=== PATIENT | male | born 1950 | race Hispanic/Latino ===

== ENCOUNTER → 2017-07-27 | Outpatient (CLI) | payer OTHER | LOC: OIH 08:36 | PROVIDERS: ATTEND Family Medicine | DX: M16.11 Unilateral primary osteoarthritis, right hip (principal) | CPT/HCPCS: 73502 ==

== ENCOUNTER → 2017-10-01 | Outpatient (CLI) | payer OTHER | END | disposition home or self-care (01) | LOC: OIH 16:17 | PROVIDERS: ATTEND Family Medicine | DX: Z01.818 Encounter for other preprocedural examination (principal); M47.895 Other spondylosis, thoracolumbar region | CPT/HCPCS: 71046 ==

== ENCOUNTER → 2018-09-30 | Outpatient (CLI) | payer OTHER | END | disposition home or self-care (01) | LOC: OIH 16:20 | PROVIDERS: ATTEND Family Medicine | DX: Z01.818 Encounter for other preprocedural examination (principal) | CPT/HCPCS: 71046 ==

== ENCOUNTER → 2019-07-21 | Outpatient (CLI) | payer OTHER | END | disposition home or self-care (01) | LOC: OIH 14:49 | PROVIDERS: ATTEND Family Medicine | DX: M17.11 Unilateral primary osteoarthritis, right knee (principal) | CPT/HCPCS: 73560 ==

== ENCOUNTER → 2023-08-28 | Outpatient (CLI) | payer OTHER | END | disposition home or self-care (01) | LOC: RESP 11:42 | PROVIDERS: ATTEND Family Medicine | DX: Z01.818 Encounter for other preprocedural examination (principal); J98.4 Other disorders of lung; M47.815 Spondylosis without myelopathy or radiculopathy, thoracolumbar region | CPT/HCPCS: 71046 ==

== ENCOUNTER 2023-09-15 07:18 | Observation (INO) | payer OTHER ==
[2023-09-09 13:25] VITALS: BP 166/92; PULSE 58; RESP 18
[2023-09-09 13:33] LABS: BASOPHILS # (AUTO) 0.03 K/uL (0.00-0.20); BASOPHILS % (AUTO) 0.6 % (0.0-5.0); EOSINOPHILS # (AUTO) 0.16 K/uL (0.00-0.70); EOSINOPHILS % (AUTO) 3.3 % (0.0-8.0); HEMATOCRIT 37.8 % (42-54); IMMATURE GRANULOCYTE ABSOLUTE 0.01 K/uL (0-1); LYMPHOCYTES # (AUTO) 1.1 K/uL (1.0-4.8); LYMPHOCYTES % (AUTO) 23.7 % (21.0-51.0); MEAN CORPUSCULAR HEMOGLOBIN 31.3 pg (27.0-33.0); MEAN CORPUSCULAR HGB CONC 34.4 g/dL (32.0-36.0); MEAN CORPUSCULAR VOLUME 90.9 fL (79-99); MONOCYTES # (AUTO) 0.5 K/uL (0.1-1.0); MONOCYTES % (AUTO) 9.5 % (3.0-13.0); NEUTROPHILS % (AUTO) 62.7 % (40.0-77.0); PLATELET COUNT (AUTO) 177 K/uL (130-400); RED BLOOD CELL COUNT(AUTO) 4.16 MIL/uL (4.50-6.20); RED CELL DISTRIBUTION WIDTH 13.3 % (11.0-15.5); WHITE BLOOD COUNT (AUTO) 4.8 K/uL (4.8-10.8)
[2023-09-15] VITALS (33 sets, daily range): BP systolic 83–164; BP diastolic 49–94; PULSE 55–92; RESP 12–19; O2SAT 94–96
[~2023-09-15] VITALS: Ht 175.3 cm; Wt 117.9 kg
[~2023-09-15 07:18] MED LIST: ATOR20TA65 PO; LISI20TA24 PO; LORA10TA7 PO; TAMS-1 PO
[2023-09-15] MEDS: LACTATED RINGERS 1000ML 1,000 ML IV ONE (07:26)
[2023-09-15] MEDS: CEFAZOLIN SODIUM 2 GM VIAL ONE ×2 (07:26→13:01)
[2023-09-15] MEDS ORDERED: ROCURONIUM BROMIDE 10MG/1ML 5ML VL ONE ×2 (07:44→08:38)
[2023-09-15] MEDS ORDERED: PROPOFOL 10 MG/ML 20ML VIAL IV ONE (07:44)
[2023-09-15] MEDS ORDERED: ONDANSETRON 4MG INJ ONE (07:44)
[2023-09-15] MEDS ORDERED: FENTANYL CITRATE PF 50 MCG/1 ML 2ML VIAL ONE (07:45)
[2023-09-15] MEDS ORDERED: MIDAZOLAM HCL 1 MG/ML 2ML VIAL ONE (07:45)
[2023-09-15] MEDS ORDERED: DEXAMETHASONE SOD PHOSPHATE 10MG/ML 1ML VIAL ONE (07:50)
[2023-09-15] MEDS ORDERED: ONDANSETRON 4MG INJ IVP PRN (08:30)
[2023-09-15] MEDS ORDERED: POTASSIUM CHLORIDE 10% ELIXIR 20 MEQ/15 ML UDCUP PO PRN (08:30)
[2023-09-15] MEDS ORDERED: KCL 20 MEQ ERTAB PO PRN (08:30)
[2023-09-15] MEDS: 0.9%NACL 1000ML 1,000 ML IV SCH (08:30)
[2023-09-15] MEDS ORDERED: POTASSIUM CHLORIDE 20MEQ/100ML 100 ML IV PRN (08:30)
[2023-09-15] MEDS: CEFAZOLIN SODIUM 3 GM VIAL IVPB ONE (08:30)
[2023-09-15] MEDS ORDERED: EPHEDRINE SULFATE 50 MG/ML AMPULE ONE (08:33)
[2023-09-15] MEDS ORDERED: TRANEXAMIC ACID 1000MG/10ML ONE (08:53)
[2023-09-15] MEDS: FAMOTIDINE 20MG TAB PO SCH (09:00)
[2023-09-15] MEDS: POLYETHYLENE GLYCOL 3350 17 GM POWD.PACK PO SCH (09:00)
[2023-09-15] MEDS: LISINOPRIL 20 MG TABLET PO SCH (09:00)
[2023-09-15] MEDS: TAMSULOSIN HCL 0.4 MG CAP.ER.24H PO SCH (09:00)
[2023-09-15] MEDS ORDERED: GLYCOPYRROLATE 0.2 MG/ML 5 ML VIAL ONE (11:19)
[2023-09-15] MEDS ORDERED: IBUPROFEN 800MG + NS 250ML IV SCH (11:30)
[2023-09-15] MEDS: CALDOLOR 800MG+NS 250ML 250 ML IV SCH (11:30)
[2023-09-15] MEDS: MEPERIDINE-PF 25 MG/ML SYG ONE ×2 (11:44→11:55)
[2023-09-15] MEDS: ACETAMINOPHEN 1,000 MG/100 ML VIAL IV ONE (11:58)
[2023-09-15] MEDS: ACETAMINOPHEN 1,000 MG/100 ML VIAL IV SCH (11:58)
[2023-09-15] MEDS: FENTANYL CITRATE PF 50 MCG/1 ML 2ML VIAL ONE ×2 (12:06→12:14)
[2023-09-15] MEDS: HYDROMORPHONE 1 MG INJ ONE (12:28)
[2023-09-15] MEDS: CEFAZOLIN SODIUM 2 GM VIAL IVPB SCH (13:30)
[2023-09-15] MEDS: MORPHINE 4 MG SYG IVP PRN (16:13)
[2023-09-15] MEDS: ATORVASTATIN 20 MG TABLET PO SCH (21:30)
[2023-09-16] VITALS (7 sets, daily range): BP systolic 114–143; BP diastolic 50–77; PULSE 67–82; RESP 17–20; O2SAT 97–100
[2023-09-16 04:41] LABS: MEAN CORPUSCULAR HEMOGLOBIN 31.1 pg (27.0-33.0); MEAN CORPUSCULAR HGB CONC 33.3 g/dL (32.0-36.0); MEAN CORPUSCULAR VOLUME 93.2 fL (79-99); RED BLOOD CELL COUNT(AUTO) 3.22 MIL/uL (4.50-6.20); RED CELL DISTRIBUTION WIDTH 13.4 % (11.0-15.5); WHITE BLOOD COUNT (AUTO) 10.2 K/uL (4.8-10.8)
[2023-09-16 05:00] LABS: CREATININE 0.9 mg/dL (0.5-1.3); POTASSIUM 4.4 mmol/L (3.5-5.1)
[2023-09-16] MEDS: FERROUS GLUCONATE 324MG TABLET.DR PO SCH (09:21)
[2023-09-16] MEDS: ENOXAPARIN SODIUM 30 MG/0.3 ML SQ SCH (09:29)
[2023-09-16] MEDS: 0.9% NACL 500ML IV.SOLN 500 ML IV ONE (17:40)
[2023-09-16] MEDS: CALDOLOR 800MG+NS 250ML 250 ML IV SCH (19:13)
[2023-09-16] MEDS ORDERED: ACETAMINOPHEN 1,000 MG/100 ML VIAL IV SCH (21:00)
[2023-09-16] MEDS ORDERED: CALDOLOR 800MG+NS 250ML 250 ML IV SCH (21:00)
[2023-09-16] MEDS: NITROFURANTOIN MONOHYD/M-CRYST 100 MG CAPSULE PO SCH (21:36)
[2023-09-16] MEDS: ACETAMINOPHEN 1,000 MG/100 ML VIAL IV SCH (21:36)
[2023-09-17] VITALS (7 sets, daily range): BP systolic 106–153; BP diastolic 44–68; PULSE 52–72; RESP 18–20; O2SAT 95–98
[2023-09-17] MEDS: HYDROCODONE/ACETAMINOPHEN 5/325 MG TAB PO PRN (09:52)
[2023-09-17] MEDS: HYDROCODONE/ACETAMINOPHEN 10/325 MG TAB PO PRN (14:35)
[2023-09-18] VITALS: BP 108/38; PULSE 86; RESP 20
[2023-09-18 04:00] VITALS: BP 130/64; PULSE 90; RESP 18
[2023-09-18 08:00] VITALS: O2SAT 96
[2023-09-18] MEDS ORDERED: BISACODYL 10 MG SUPP.RECT RC PRN (08:30)
[2023-09-18 08:36] VITALS: BP 131/75; PULSE 73; RESP 15
[2023-09-18 11:43] VITALS: BP 122/56; PULSE 77; RESP 18
== END 2023-09-18 14:10 | disposition home or self-care (01) ==
LOC: DAH 07:18 → DAHIP 07:19 → DAH 07:19 → 4BH 15:57
PROVIDERS: ADMIT Orthopaedic Surgery; ATTEND Orthopaedic Surgery
DX: M16.12 Unilateral primary osteoarthritis, left hip (principal); G89.18 Other acute postprocedural pain; E78.5 Hyperlipidemia, unspecified; I10 Essential (primary) hypertension; E66.01 Morbid (severe) obesity due to excess calories; Z96.652 Presence of left artificial knee joint; Z68.38 Body mass index [BMI] 38.0-38.9, adult
CPT/HCPCS: 83540; 85025; 82306; 36415 ×2; 87641; 27130; 96367; 64447; 72170; 96365; 96375; 88311; 88304; 73502; 97161; 97530 ×10; 96376 ×2; 96372 ×3; 96366 ×2; 80048; 85027; 97116 ×5; A6260; G0378 ×65; A4600; A4663; J7120 ×2; A4606; J0690 ×5; J3010 ×3; J1170; J3490 ×5; J1100; J2250; J2704; J2405; J2270 ×2; J2175 ×2; J1741 ×4; A4649; G0168; A6212; C1776; A4215; A4223; A4213; A4222; A4221; J1650 ×3